=== PATIENT | male | born 1990 | race Caucasian/White ===

== ENCOUNTER → 2019-03-03 | Outpatient (CLI) | payer BC ==
[~2019-03-03] MED LIST: AMOXICILLIN500 M2 PO; FLOMAX0.4 MG PO; HYDROCODONE BIT1 T11 PO; MEDROL DOSEPAK4 MG PO; NAPROSYN500 MG PO; PERCOCET 325 MG1 TA2 PO; SEROQUEL100 MG PO; ZOFRAN ODT4 MG SL
[2019-03-03 12:13] LABS: BILIRUBIN NEGATIVE (NEGATIVE); BLOOD NEGATIVE (NEGATIVE); CLARITY SL CLOUDY (CLEAR); COLOR YELLOW (YELLOW); GLUCOSE NEGATIVE (NEGATIVE); KETONE NEGATIVE (NEGATIVE); LEUKO ESTERASE NEGATIVE (NEGATIVE); NITRITE NEGATIVE (NEGATIVE); PH 6.5 (5.0-9.0); SPECIFIC GRAVITY 1.015 (1.005-1.030); UROBILINOGEN 0.2 E.U./dl (0.2-1.0)
[2019-03-03 12:15] LABS: BASO # 0.1 10*3/uL (0.0-0.1); BASO % 0.7 % (0.0-1.0); EOS # 0.3 10*3/uL (0.0-0.4); EOS % 3.9 % (1.0-4.0); HEMATOCRIT 49.3 % (42.0-52.0); HEMOGLOBIN 16.2 g/dl (14.0-18.0); LYMPH % 37.1 % (27.0-41.0); MEAN CELL VOLUME 86.9 fl (80.0-94.0); MEAN CORPUSCULAR HGB 28.6 pg (27.0-31.0); MEAN CORPUSCULAR HGB CONC 32.9 g/dl (33.0-37.0); MEAN PLATELET VOLUME 10.4 fl (9.6-12.3); MONO # 0.8 10*3/uL (0.1-1.0); MONO % 9.4 % (3.0-9.0); NEUT % 48.7 % (47.0-73.0); PLATELET COUNT AUTOMATED 309 10*3/uL (130-400); RED BLOOD COUNT 5.67 10*6/uL (4.50-5.90); RED CELL DISTRI WIDTH 13.2 % (0-14.5); WHITE BLOOD COUNT 8.2 10*3/uL (4.8-10.8)
[2019-03-03 12:18] LABS: MUCOUS TRACE
[2019-03-03 12:44] LABS: ALBUMIN 3.9 gm/dl (3.1-4.5); ALKALINE PHOSPHATASE 89 U/L (45-117); BUN 13 mg/dl (7-24); CHLORIDE 108 mmol/L (98-107); CHOLESTEROL 156 mg/dL (<200); FREE T4 1.08 ng/dl (0.76-1.46); HDL CHOLESTEROL 25 mg/dl (40-60); LDL CHOLESTEROL 92 mg/dL (9-159); POTASSIUM 4.6 mmol/L (3.5-5.1); SGOT/AST 12 IU/L (3-35); SGPT/ALT 25 U/L (12-78); SODIUM 142 mmol/L (136-145); TOTAL PROTEIN 7.5 gm/dL (6.4-8.2); TRIGLYCERIDES 193 mg/dl (<150); VLDL CHOLESTEROL 39 mg/dL (6-40)
== END | disposition home or self-care (01) ==
LOC: LAB 11:39
PROVIDERS: Family Medicine
DX: E88.81 Metabolic syndrome and other insulin resistance (principal); I10 Essential (primary) hypertension

== ENCOUNTER 2020-12-01 14:22 | Emergency (ER) | payer BC ==
[~2020-12-01] VITALS: Wt 140.6 kg
[2020-12-01 14:51] LABS: BASO # 0.1 10*3/uL (0.0-0.1); BASO % 0.7 % (0.0-1.0); EOS # 0.3 10*3/uL (0.0-0.4); EOS % 2.3 % (1.0-4.0); HEMATOCRIT 50.1 % (42.0-52.0); LYMPH % 25.8 % (27.0-41.0); MEAN CELL VOLUME 84.8 fl (80.0-94.0); MEAN CORPUSCULAR HGB 27.7 pg (27.0-31.0); MEAN CORPUSCULAR HGB CONC 32.7 g/dl (33.0-37.0); MEAN PLATELET VOLUME 10.5 fl (9.6-12.3); MONO # 0.9 10*3/uL (0.1-1.0); MONO % 7.4 % (3.0-9.0); NEUT # 7.3 10*3/uL (2.3-7.9); NEUT % 63.5 % (47.0-73.0); PLATELET COUNT AUTOMATED 347 10*3/uL (130-400); RED BLOOD COUNT 5.91 10*6/uL (4.50-5.90); RED CELL DISTRI WIDTH 12.7 % (0-14.5); WHITE BLOOD COUNT 11.5 10*3/uL (4.8-10.8)
[2020-12-01 15:01] LABS: ACT PARTIAL THROMBO TIME 27.2 SECONDS (20.0-32.1)
[2020-12-01 15:14] LABS: ALBUMIN 3.8 gm/dl (3.1-4.5); ALKALINE PHOSPHATASE 113 U/L (45-117); BUN 9 mg/dl (7-24); CHLORIDE 107 mmol/L (98-107); CREATININE 0.97 mg/dL (0.70-1.30); LIPASE 44 U/L (73-393); POTASSIUM 3.7 mmol/L (3.5-5.1); SGOT/AST 19 IU/L (3-35); SGPT/ALT 31 U/L (12-78); SODIUM 140 mmol/L (136-145); TOTAL PROTEIN 7.9 gm/dL (6.4-8.2)
[2020-12-01 15:22] LABS: TROPONIN I < 0.015 ng/ml (<0.045)
== END 2020-12-01 19:22 | disposition home or self-care (01) ==
LOC: ED 14:22
PROVIDERS: Physician Assistant
DX: R07.9 Chest pain, unspecified (principal); M25.512 Pain in left shoulder; R06.02 Shortness of breath; F17.200 Nicotine dependence, unspecified, uncomplicated

== ENCOUNTER → 2020-12-10 | Outpatient (CLI) | payer BC ==
[2020-12-10 16:27] LABS: FREE T4 1.02 ng/dl (0.76-1.46); THYROID STIM HORMONE (HS) 2.41 uIU/ml (0.358-4.75)
[2020-12-10 17:15] LABS: VITAMIN D, 25-HYDROXY 14.3 ng/mL (30-100)
== END | disposition home or self-care (01) ==
LOC: LAB 14:46
PROVIDERS: ATTEND Family Medicine
DX: E55.9 Vitamin D deficiency, unspecified (principal); E74.00 Glycogen storage disease, unspecified; R53.83 Other fatigue; F41.1 Generalized anxiety disorder; R63.5 Abnormal weight gain

== ENCOUNTER 2022-05-17 16:30 | Emergency (ER) | payer OTHER ==
[~2022-05-17] VITALS: Ht 182.8 cm; Wt 142.9 kg
== END 2022-05-17 18:52 | disposition home or self-care (01) ==
LOC: ED 16:30
DX: S50.812A Abrasion of left forearm, initial encounter (principal); Z23 Encounter for immunization; W55.89XA Other contact with other mammals, initial encounter; Y93.89 Activity, other specified; Y92.89 Other specified places as the place of occurrence of the external cause; Y99.8 Other external cause status

== ENCOUNTER 2022-05-20 16:19 | Emergency (ER) | payer OTHER ==
[~2022-05-20] VITALS: Ht 182.8 cm; Wt 136.1 kg
== END 2022-05-20 17:41 | disposition home or self-care (01) ==
LOC: ED 16:19
DX: Z23 Encounter for immunization (principal)

== ENCOUNTER 2022-05-24 17:50 | Emergency (ER) | payer OTHER ==
[~2022-05-24] VITALS: Ht 182.8 cm; Wt 136.1 kg
== END 2022-05-24 18:39 | disposition home or self-care (01) ==
LOC: ED 17:50
DX: Z23 Encounter for immunization (principal)

== ENCOUNTER 2022-05-31 17:28 | Emergency (ER) | payer OTHER ==
[~2022-05-31] VITALS: Ht 182.8 cm; Wt 142.9 kg
== END 2022-05-31 18:57 | disposition home or self-care (01) ==
LOC: ED 17:28
DX: Z23 Encounter for immunization (principal)

== ENCOUNTER 2024-12-24 21:09 | Emergency (ER) | payer OTHER ==
[~2024-12-24] VITALS: Ht 182.8 cm; Wt 149.7 kg
[2024-12-24] MEDS ORDERED: Sulfamethoxazole/Trimethopri 1 TAB TAB PO ONE (22:25)
== END 2024-12-24 22:27 | disposition home or self-care (01) ==
LOC: ED 21:09
DX: L02.211 Cutaneous abscess of abdominal wall (principal); Z87.442 Personal history of urinary calculi; Z98.890 Other specified postprocedural states